=== PATIENT | female | born 1950 | race Caucasian/White ===

== ENCOUNTER 2024-03-04 06:38 | Observation (INO) ==
--- NOTE | 2024-02-06 15:11 | Anesthesiology Consultation ---
Date of Service February 06, 2024 Assessment & Plan (1) Encounter for pre-operative examination: Chart Review Chart Review: Acceptable Risk for Surgery and Patient NOT seen in Pre Admission Testing Infectious Disease screening: Per PAT nursing assessment on 02/06/24, No known infectious disease contacts in past 10 days or current infectious disease symptoms. No recent travel outside the country. History Surgery Operation Date: 03/04/24 11:55 Proposed Procedures p Laparoscopic Multiple Recurrent Ventral Hernia Repair with Mesh - Kulwant Gamez DO Height/Weight Height: 4 ft 11 in Weight: 77.111 kg Allergies Allergy/AdvReac Type Severity Reaction Status Date / Time No Known Allergies Allergy Verified 02/06/24 12:43 Medications Home Medications Medication Instructions Recorded Confirmed Last Taken albuterol sulfate 90 mcg/actuation 2 puff inhalation Q6H PRN 01/14/24 02/06/24 Unknown aerosol inhaler (Ventolin HFA) Shortness Of Breath aspirin 81 mg tablet,delayed 81 mg PO QPM 01/14/24 02/06/24 Unknown release clobetasol 0.05 % topical cream 1 applic topical DAILY PRN Yeast 01/14/24 02/06/24 Unknown Infection dapagliflozin propanediol 10 mg 10 mg PO QAM 01/14/24 02/06/24 Unknown tablet (Farxiga) gabapentin 100 mg capsule 100 mg PO HS 01/14/24 02/06/24 Unknown hydrochlorothiazide 12.5 mg tablet 12.5 mg PO QAM 01/14/24 02/06/24 Unknown insulin glargine 100 unit/mL (3 See Rx Instructions .Route .COMPLEX 01/14/24 02/06/24 Unknown mL) subcutaneous pen (Lantus Solostar U-100 Insulin) meclizine 12.5 mg tablet 12.5 mg PO TID PRN Vertigo 01/14/24 02/06/24 Unknown metformin 1,000 mg tablet 1,000 mg PO QAM 01/14/24 02/06/24 Unknown nystatin 100,000 unit/gram topical 1 applic topical DAILY PRN Yeast 01/14/24 02/06/24 Unknown powder Infection omeprazole 40 mg capsule,delayed 40 mg PO QAM 01/14/24 02/06/24 Unknown release potassium chloride 10 mEq 10 meq PO QAM 01/14/24 02/06/24 Unknown capsule,extended release semaglutide 1 mg/dose (4 mg/3 mL) 1 mg subcut WK 01/14/24 02/06/24 02/02/24 subcutaneous pen injector (Ozempic) simvastatin 20 mg tablet 20 mg PO HS 01/14/24 02/06/24 Unknown vortioxetine 10 mg tablet 10 mg PO QAM 01/14/24 02/06/24 Unknown (Trintellix) furosemide 20 mg tablet 20 mg PO DAILY PRN Fluid Retention 02/06/24 02/06/24 Unknown losartan 50 mg tablet 50 mg PO QAM 02/06/24 02/06/24 Unknown Past Medical History Medical History (Updated 02/06/24 @ 15:10 by Ann Brush PA-C) Anxiety Chronic kidney disease (CKD) Stage II- PCP monitors closely Diabetes mellitus, type II Mukund in place - rotate sites GERD (gastroesophageal reflux disease) GI bleed hx - >30 years ago History of Mohs micrographic surgery for skin cancer Nose HTN (hypertension) Hx of deep venous thrombosis >30 years ago Obesity Osteoarthritis Peripheral neuropathy Skin cancer On nose - 2022 - MOHS Sleep apnea c-pap Past Family History Family History (Updated 01/26/24 @ 11:39 by Aiyana Lyons RN) Brother Cancer Other Diabetes Past Surgical History Surgical History (Updated 02/06/24 @ 13:08 by Mahsa Woodson RN) H/O ankle fusion Left H/O: hysterectomy History of tonsillectomy and adenoidectomy Hx of cataract surgery Bilateral Hx of colonoscopy Hx of hernia repair x3 S/P appendectomy S/P hernia surgery [address] Weaver Dubious Social History Smoking Status: Never smoker Do You Dip or Chew Tobacco: No Hx Alcohol Use: Yes Alcohol type: wine alcohol intake frequency: holidays/special occasions only Hx Substance Use: No substance use type: does not use Lab Results Anesthesia Preop Results Results Anesthesia Widget: WBC 8.69 K/ul (4.8-10.8) 01/26/24 Hgb 12.9 g/dl (12.0-16.0) 01/26/24 Hct 39.2 % (37.0-47.0) 01/26/24 Plt 363 K/uL (130-400) 01/26/24 Na 141 mmol/L (136-145) 01/26/24 K 3.9 mmol/L (3.5-5.1) 01/26/24 Cl 98 mmol/L (98-107) 01/26/24 CO2 32 mmol/L (21-32) 01/26/24 BUN 17 mg/dl (6-23) 01/26/24 Creat 1.17 mg/dl (0.6-1.2) 01/26/24 Glucose Level 121 mg/dl (70-99(Fasting)) H 01/26/24 Testing Electrocardiogram Date: 01/26/24 Findings: + NSR @ (92bpm) LAD
--- NOTE | 2024-03-04 06:58 | History & Physical Report ---
Date of Service March 04, 2024 Assessment & Plan (1) Recurrent ventral hernia: Plan: We have discussed her options as well as risks. We have discussed bleeding, infection, injury to another organ such as bowel, DVT, PE, AK, CVA etc. Following our discussion I answered all of her questions. She agrees with the plan and we will proceed today with laparoscopic repair of a recurrent ventral hernia with mesh. (2) Chronic kidney disease: (3) Hypertension: (4) Diabetes: History of Present Illness Primary Care Provider: Carly Ramos MD Renetta is here for repair of a recurrent ventral hernia. It has been getting larger and more symptomatic. There have been no major health changes since I seen her last in the office. Allergies Allergy/AdvReac Type Severity Reaction Status Date / Time No Known Allergies Allergy Verified 02/24/24 11:09 Home Medications Medication Instructions Recorded Confirmed Type aspirin 81 mg tablet,delayed 81 mg PO QPM 01/14/24 02/24/24 History release clobetasol 0.05 % topical cream 1 applic topical DAILY PRN Yeast 01/14/24 02/24/24 History Infection dapagliflozin propanediol 10 mg 10 mg PO QAM 01/14/24 02/24/24 History tablet (Farxiga) gabapentin 100 mg capsule 100 mg PO HS 01/14/24 02/24/24 History hydrochlorothiazide 12.5 mg tablet 12.5 mg PO QAM 01/14/24 02/24/24 History insulin glargine 100 unit/mL (3 See Rx Instructions .Route .COMPLEX 01/14/24 02/24/24 History mL) subcutaneous pen (Lantus Solostar U-100 Insulin) meclizine 12.5 mg tablet 12.5 mg PO TID PRN Vertigo 01/14/24 02/24/24 History metformin 1,000 mg tablet 1,000 mg PO QAM 01/14/24 02/24/24 History nystatin 100,000 unit/gram topical 1 applic topical DAILY PRN Yeast 01/14/24 02/24/24 History powder Infection omeprazole 40 mg capsule,delayed 40 mg PO QAM 01/14/24 02/24/24 History release potassium chloride 10 mEq 10 meq PO QAM 01/14/24 02/24/24 History capsule,extended release simvastatin 20 mg tablet 20 mg PO HS 01/14/24 02/24/24 History vortioxetine 10 mg tablet 10 mg PO QAM 01/14/24 02/24/24 History (Trintellix) furosemide 20 mg tablet 20 mg PO DAILY PRN Fluid Retention 02/06/24 02/24/24 History losartan 50 mg tablet 50 mg PO QAM 02/06/24 02/24/24 History semaglutide 2 mg/dose (8 mg/3 mL) 2 mg (0.75 mL) subcut WK #3 mL 02/24/24 02/24/24 Rx subcutaneous pen injector (Ozempic) blood-glucose meter,continuous #1 ea 02/27/24 Rx (Dexcom G7 Crm Specialist) blood-glucose sensor (Dexcom G7 #9 ea 03/03/24 Rx Sensor device) Past Med/Surg History Problem List (Updated 02/24/24 @ 12:10 by Carly Ramos MD) Healthcare maintenance Encounter for pre-operative examination Recurrent ventral hernia Sleep apnea Chronic kidney disease Intertrigo Peripheral neuropathy Osteoarthritis Anxiety Abdominal pain Hypertension Diabetes Ventral hernia Medical History Obesity GERD (gastroesophageal reflux disease) History of Mohs micrographic surgery for skin cancer Hx of deep venous thrombosis Sleep apnea Peripheral neuropathy Osteoarthritis HTN (hypertension) Diabetes mellitus, type II Chronic kidney disease (CKD) Anxiety Skin cancer GI bleed Surgical History Hx of colonoscopy Hx of hernia repair Hx of cataract surgery H/O ankle fusion History of tonsillectomy and adenoidectomy H/O: hysterectomy S/P appendectomy S/P hernia surgery Family History Brother Cancer Other Diabetes Social History Smoking Status: Never smoker Second Hand Exposure: No; Do You Dip or Chew Tobacco: No; Tobacco Cessation Education Requested by Patient: No Hx Alcohol Use: Yes Alcohol type: wine Hx Substance Use: No Preferred Language: Setswana Communication Ability: Effective Senior Coldfusion Developer Required: No Beliefs That Will Affect Care: None marital status: / Current Living Situation: Alone current occupational status: retired How many Children do You have: 1 Other Information That Helps Us Care for You: No Feels Safe at Home: Yes Safety Concerns: Feels Safe At This Time Diet: diabetic during the past year weight has: decreased > 10 lbs Assistive Devices: Contacts, CPAP, Denture - Upper and Glasses Physical Exam Constitutional: WD/WN, vitals as above no acute distress and not ill appearing Eyes: PERRL, conjunctivae normal, anicteric sclerae EOM intact bilaterally ENMT: external ear and nose normal, oropharynx normal Ears: no hearing impairment Neck: trachea midline, no thyromegaly Respiratory: normal respiratory effort; no respiratory distress and does not use accessory muscles Cardiovascular: Rate/Rhythm: regular rate and regular rhythm Gastrointestinal (Abdomen): Soft nontender. Recurrent midline ventral hernia. Exam unchanged from prior Skin: no rashes, warm and dry Psychiatric: Orientation: alert, oriented x 3 and cooperative
[2024-03-04] MEDS: LR 15ML/HR IV SCH (07:30)
[2024-03-04] MEDS ORDERED: diphenhydrAMINE 50 MG/ML VIAL ONE (07:47)
[2024-03-04] MEDS ORDERED: ONDANSETRON INJ 2 MG/ML 2 ML VIAL ONE (07:47)
[2024-03-04] MEDS ORDERED: LIDOCAINE 2% 2 ML VIAL/AMP(20MG/ML) INFIL ONE (07:47)
[2024-03-04] MEDS ORDERED: SODIUM CHLORIDE 0.9% PF INJ 10 ML VIAL ONE (07:47)
[2024-03-04] MEDS ORDERED: DEXAMETHASONE SOD INJ 4 MG/ML VIAL ONE (07:47)
[2024-03-04] MEDS ORDERED: ROCURONIUM BROMIDE 10 MG/ML 5 ML VIAL IV ONE (07:47)
[2024-03-04] MEDS ORDERED: PROPOFOL IV EMULSION 10 MG/ML 20 ML VIAL IV ONE (07:47)
[2024-03-04] MEDS ORDERED: fentaNYL citrate PF 100 MCG/2 ML VIAL ONE (07:48)
[2024-03-04] MEDS ORDERED: MIDAZOLAM HCL 1 MG/ML 2ML VIAL ONE (07:48)
[2024-03-04] MEDS: ceFAZolin 2000MG 2,000 MG/15 ML SYR IV SCH (08:35)
[2024-03-04] MEDS ORDERED: SUGAMMADEX SODIUM 200 MG/2 ML VIAL IV ONE (08:52)
[2024-03-04] MEDS ORDERED: ePHEDrine sulfate 50 MG/5 ML SYR ONE (09:05)
[2024-03-04] MEDS ORDERED: ONDANSETRON INJ 2 MG/ML 2 ML VIAL IV PRN ×2 (09:13→09:30)
[2024-03-04] MEDS ORDERED: oxyCODONE/ACETAMINOPHEN 5mg/325mg TAB PO PRN (09:13)
[2024-03-04] MEDS ORDERED: ACETAMINOPHEN 1000 MG/100 ML IV IV ONE (09:26)
[2024-03-04] MEDS ORDERED: HYDROmorphone INJ 2 MG/ML SYR/VIAL IV PRN (09:30)
[2024-03-04] MEDS ORDERED: PROMETHAZINE HCL 6.25 MG in SODIUM CHLORIDE 0.9% 50 ML IV PRN (09:30)
[2024-03-04] MEDS ORDERED: ATROPINE SULFATE 0.1 MG/ML 10ML SYR IV PRN (09:30)
[2024-03-04] MEDS ORDERED: ePHEDrine sulfate 50 MG/ML AMP IV PRN (09:30)
[2024-03-04] MEDS: BUPIVACAINE/EPINEPHRINE 0.5% MPF 1:200,000 30 ML VIAL ONE (09:47)
[2024-03-04] MEDS ORDERED: PHARMACY GLYCEMIC MGMT CONSULT PRN (10:01)
[2024-03-04] MEDS ORDERED: GLUCAGON FOR INJ 1 MG VIAL SQ PRN (10:01)
[2024-03-04] MEDS ORDERED: ACETAMINOPHEN 1,000 MG/100 ML VIAL IV PRN (10:01)
[2024-03-04] MEDS ORDERED: DEXTROSE 50% 50 ML SYRINGE IV PRN (10:01)
[2024-03-04] MEDS ORDERED: GLUCOSE 10 TAB/TUBE PO PRN (10:01)
[2024-03-04] MEDS ORDERED: GLUCOSE 40% GEL 15 GM TUBE PO PRN (10:01)
[2024-03-04] MEDS ORDERED: CARBOHYDRATES FOR HYPOGLYCEMIA PO PRN (10:01)
[2024-03-04] MEDS: fentaNYL citrate PF 100 MCG/2 ML VIAL IV PRN (10:10)
--- NOTE | 2024-03-04 10:17 | Operative Report ---
PG Post Operative Report Pre & Post Diagnosis Operation Date: 03/04/24 08:15 Pre-Op Diagnosis: Multiple Recurrent Ventral Hernia Post-Op Diagnosis: Multiple Recurrent Ventral Hernia x 3; adhesions I identified the patient and participated in the time-out.: Yes Procedure Operation Date: 03/04/24 08:15 Actual Procedures p Laparoscopic Multiple Recurrent Ventral Hernia Repair with Mesh x 3(Not Applicable); enterolysis - Kulwant Gamez DO Surgeon Kulwant Gamez DO Clinical Scientist jc Murphy Estimated Blood Loss 10 Findings Consistent with Post-Op Diagnosis Specimens none Description of Procedure After informed consent was obtained the patient was taken to the operating room and placed in supine position. After successful intubation a Campbell catheter was placed sterilely and both arms were tucked. The abdomen was sterilely prepped and draped in usual fashion. A left upper quadrant incision was made with an 11 blade scalpel and carried down through the soft tissue using cautery. The anterior fascia was opened using cautery and two #0 Vicryl stay sutures were placed. Peritoneum was elevated with hemostats and incised under direct vision using a Metzenbaum scissor. Finger sweep was performed to take down any underlying adhesions. A 12 mm Chaudhry trocar was placed and the abdomen was insufflated to 18 mmHg. The laparoscope was inserted. There were adhesions primarily along the midline. These primarily involved colon as well as omentum. I was able to safely place a left lower quadrant 5 mm trocar and a left mid abdominal 5 mm trocar. At least 50% of the procedure was spent taking down adhesions. This was performed using blunt dissection primarily with small amounts of the harmonic scalpel. Once I had the adhesions down we were able to identify 3 separate hernias. There was a small 1 in the right lower quadrant that was probably 1 cm with some fat incarceration. There was an upper midline hernia which was probably 4 cm in greatest dimension and a smaller upper midline incision just to the right of midline just superior to the previous mesh which measured probably 2 cm. There was a general weakness to the central portion of the abdomen although no discrete hernias. We were able to see 2 previously placed pieces of mesh and they both held up nicely with no evidence of recurre nce hernia through the mesh itself. I began by using a 12 cm circular mesh with an antiadhesive barrier. It was rolled up and placed into the abdomen through the camera port site. It was unrolled and placed such that the antiadhesive barrier was facing the bowel. A small incision was made directly over the larger defect and a fascial closure device used to pull the central Prolene stitch. This pulled the mesh up to the undersurface of the hernia defect. A Reliatack tacking device was used to secure the mesh. We did use the absorbable deep tacks. The mesh nicely overlapped the hernia in all directions was tension-free. In similar fashion a 10 cm surgimesh was placed again through the camera port site. It was also unrolled. Again a small incision was made over the central portion of the smaller defect. Fascial closure device was used to pull the central Prolene stitch. Again the mesh came up as an underlay and covered the defect for several centimeters in all directions. The same tacking device was used to secure this mesh again with the deep tacks. The smaller right lower quadrant hernia defect was able to be reduced manually. I felt that the defect would not need mesh because of its size but also its location would make securing it safely very difficult particularly on the inferior and lateral portions. I therefore made a small skin incision directly over it. A fascial closure device was used to pass an 0 Ethibond stitch through the fascia just inferior to the defect as well as superior to the defect and used to pull the tail of the suture back up through. we were then able to primarily close it with a single stitch. A final look around the abdomen showed adequate hemostasis and no other abnormalities. The trocars were all removed and the abdomen desufflated. The 2 central Prolene stitches were also secured. Marcaine with epinephrine was injected around all the incisions. The fascia of the camera port was closed using 0 Vicryl in a [id number] fashion. All the wounds were irrigated and closed using 4-0 Monocryl. Dermabond glue was used as a dressing. The patient had an abdominal binder placed was extubated and transferred to recovery in stable condition. My nurse practitioner was present for the entire case was instrumental in gaining access, assisting with mesh placement, running the camera, wound closure and dressing placement. I attest to the content of the Intraoperative Record and any orders documented therein. Any exceptions are noted below.
[2024-03-04] MEDS: LACTATED RINGER'S 1,000 ML IV SCH (10:45)
[2024-03-04] MEDS: MoRPHine SULFATE 4 MG/ML 1 ML CARP\\VIAL IV PRN (11:04)
[2024-03-04] MEDS: FAMOTIDINE/PF 20 MG/2 ML VIAL IV ONE (11:28)
[2024-03-04] MEDS: SODIUM CHLORIDE 0.9% 1,000 ML IV SCH (11:29)
[2024-03-04] MEDS ORDERED: INSULIN ASPART PER UNIT CHARGE SC SCH (11:30)
--- NOTE | 2024-03-04 11:43 | Anesthesiology Progress Note ---
Date of Service March 04, 2024 Anesthesia Post Procedure Vital Signs Vital Signs: Temp Pulse Pulse Resp BP BP Pulse Ox 03/04/24 11:23 36.5 C 90 16 110/58 L 97 03/04/24 10:45 36.8 C 96 H 16 110/66 95 03/04/24 10:35 36.4 C L 95 H 14 113/47 L 96 03/04/24 10:25 96 H 15 118/52 L 98 03/04/24 10:15 98 H 14 123/54 L 97 03/04/24 10:05 101 H 17 111/62 97 03/04/24 09:59 36.9 C 106 H 18 112/48 L 96 03/04/24 07:03 37.2 C 102 H 20 166/83 H 98 O2 Del Method O2 Flow Rate 03/04/24 11:23 Nasal Cannula 2 03/04/24 10:45 Nasal Cannula 2 03/04/24 10:35 Nasal Cannula 2 03/04/24 10:25 Nasal Cannula 2 03/04/24 10:15 Oxymask 9 03/04/24 10:05 Oxymask 9 03/04/24 09:59 Oxymask 9 03/04/24 07:03 Room Air Pain Intensity Abdomen: Pain Intensity: 3 Transfer of Care Handoff Completed per policy Notes Mental Status: alert / awake / arousable and participated in evaluation Patient Amnestic to Procedure: Yes Nausea / Vomiting: adequately controlled Pain: adequately controlled Airway Patency, RR, SpO2: stable & adequate BP & HR: stable & adequate Hydration State: stable & adequate Anesthetic Complications: no major complications apparent
[2024-03-04] MEDS: LANTUS PER UNIT CHARGE SC ONE (12:27)
[2024-03-04] MEDS: INSULIN ASPART PER UNIT CHARGE SC SCH (12:27)
[2024-03-04] MEDS: oxyCODONE/ACETAMINOPHEN 5mg/325mg TAB PO PRN (12:28)
[2024-03-04] MEDS: MoRPHine SULFATE 2 MG/ML CARP IV PRN (14:06)
--- NOTE | 2024-03-04 14:52 | Pharmacy Report ---
Pharmacy Glycemic Short Note 2 - Date of Service March 04, 2024 - Glycemic Short BSG Results (Last 24 hours): 03/04/24 03/04/24 03/04/24 07:29 10:01 11:26 POC Glucose 167 H 236 H 281 H OUTPATIENT ANTIDIABETIC REGIMEN: * Lantus 35 units Q AM and lantus 30 units q PM * Metformin 1000mg po daily * Farxiga 10mg daily * Ozempic 2mg SC weekly HbA1c: 7.2% on 02/10/24 ASSESSMENT: * Patient is a 71 year old female admitted for a recurrent ventral hernia. Pharmacy has been consulted for glycemic management following hernia repair (POD #0) * Last dose of lantus was 30 units in the evening of 03/03. Patient received 4mg dexamethasone iv x 1 this morning. Postop BSGs were 236 and 281mg/dl so 45 units of lantus were given. No further doses of steroids have been ordered so a basal scale has been ordered for this evening (0-15 units of lantus) * T2DM diet ordered so Novolog was also started with lunch today and added supplemental checks at 0000 and 0400 for tonight only. PLAN FOR INPATIENT GLYCEMIC CONTROL: * Hold outpatient diabetes medications * Basal insulin * Lantus 45 units SQ x 1 then scale for this PM (0 units for BSG < 120, 10 units for BSG 120-180 units, 15 units for BSG > 180) * Bolus insulin * NovoLog per scale ACHS or Q6hrs while NPO * Goal Range: Low 110 mg/dL - High 140 mg/dL * Correction Factor: 20 mg/dL/unit * Nutritional / Prandial insulin per carb ratio of 1 unit per 6 grams CHO consumed
[2024-03-04] MEDS: GABAPENTIN 100 MG CAP PO SCH (21:36)
[2024-03-04] MEDS: SIMVASTATIN 20 MG TAB PO SCH (21:51)
[2024-03-04] MEDS: LANTUS PER UNIT CHARGE SC SCH (21:52)
[2024-03-05] MEDS: INSULIN ASPART PER UNIT CHARGE SC SCH (01:08)
[2024-03-05 06:23] LABS: Basophils # (auto) 0.02 K/uL (0.00-0.20); Basophils % (auto) 0.2 %; Eosinophils # (auto) 0.01 K/uL (0.00-0.50); Eosinophils % (auto) 0.1 %; Hematocrit (blood only) 30.9 % (37.0-47.0); Hemoglobin 9.8 g/dl (12.0-16.0); Immature Granulocytes # (auto) 0.07 K/uL (0.01-0.20); Immature Granulocytes % (auto) 0.8 %; Lymphocytes # (auto) 0.94 K/uL (1.20-3.40); Lymphocytes % (auto) 10.9 %; Mean Corpuscular Hemoglobin 28.6 pg (25.0-34.0); Mean Corpuscular Hgb Conc 31.7 g/dL (32.0-36.0); Mean Corpuscular Volume 90.1 fL (80.0-100.0); Mean Platelet Volume 9.4 fL (9.4-12.4); Monocytes # (auto) 0.82 K/uL (0.11-0.59); Monocytes % (auto) 9.5 %; Neutrophils # (auto) 6.74 K/uL (1.40-6.50); Neutrophils % (auto) 78.5 %; Platelet Count 265 K/uL (130-400); RDW Coefficient of Variation 13.7 % (11.5-14.5); RDW Standard Deviation 45.4 fL (36.4-46.3); Red Blood Count 3.43 M/uL (4.20-5.40)
[2024-03-05 07:01] VITALS: BP 118/71; PULSE 83; RESP 16; TEMP 98.4; O2SAT 92
[2024-03-05] MEDS: hydroCHLOROthiazide 25 MG TAB PO SCH (08:15)
[2024-03-05] MEDS: PANTOprazole 40 MG TAB PO SCH (08:15)
[2024-03-05] MEDS: LOSARTAN POTASSIUM 50 MG TAB PO SCH (08:15)
[2024-03-05] MEDS: POTASSIUM CHLORIDE 10 MEQ TABCR PO SCH (08:20)
--- NOTE | 2024-03-05 08:20 | Surgery Progress Note ---
Date of Service March 05, 2024 Assessment & Plan (1) S/P repair of ventral hernia: Plan: POD 1 doing well ok for d/c. instructions given Admission and Anticipated Discharge Date Admission Date: March 04, 2024 Subjective pt seen. doing well. OOB eating breakfast Physical Exam Physical Exam: alert. nad abd: soft. expected tenderness Results & Data Vital Signs (Past 12 Hours) Vital Signs Temp Pulse Pulse Resp BP Pulse Ox O2 Del Method 03/05/24 07:01 36.9 C 83 16 118/71 92 Room Air 03/05/24 03:57 36.6 C 84 18 122/77 96 Room Air 03/04/24 22:39 36.9 C 89 17 104/66 96 Room Air PG Care Time/CCT Total # of Minutes Spent Total Time Spent with Patient: Total time spent is greater than 50% in coordination of care (as documented) at patient's floor/unit and/or counseling patient: Coding Level of Care Code 05929 Post Operative Follow-Up Diagnoses S/P repair of ventral hernia Z98.890; Z87.19
[2024-03-05] MEDS: LANTUS PER UNIT CHARGE SC SCH (09:03)
--- NOTE | 2024-03-10 08:30 | Discharge Summary ---
Date of Service March 05, 2024 Admission HPI Per Admitting Provider Renetta is here for repair of a recurrent ventral hernia. It has been getting larger and more symptomatic. There have been no major health changes since I seen her last in the office. Principal Diagnosis s/p repair of ventral hernia Discharge Exam awake/alert, no distress Gastrointestinal (Abdomen) Inspection/Auscultation: + abdominal surgical incision (c/d/i with dermabond) Percussion/Palpation: + abdomen tender (expected post op discomfort to palpation) and abdomen soft Discharge Data Allergies Allergy/AdvReac Type Severity Reaction Status Date / Time No Known Allergies Allergy Verified 03/04/24 07:08 Procedures Performed Operation Date: 03/04/24 08:15 Actual Procedures p Laparoscopic Multiple Recurrent Ventral Hernia Repair with Mesh(Not Applicable) - Kulwant Gamez, Hospital Course (1) S/P repair of ventral hernia: This is a 73yF who presented to the [facility] on 03/04/24 for elective repair of multiple ventral hernia's with mesh performed laparoscopically with dr. gamez. The patient tolerated the procedure well, see op note for full details. The patient recovered in the PACU and was transferred to the med/surg floor in stable condition. Post operatively diet was advanced as tolerated and pain controlled with prn pain medications. On POD#1 the patient was tolerating a regular diet, pain manageable, and incisions c/d/i. She was deemed stable for discharge to home with instructions to follow up in clinic within 2 weeks time for a post op check. Total Time Total Time Spent Total Time Spent (In Minutes): 10 Discharge Plan Discharge Items Patient Disposition: Home - Self-Care Reason For Visit: S/P VENTRAL HERNIA REPAIR Discharge Diagnosis: Laparoscopic Multiple Recurrent Ventral Hernia Repair with Mesh Activity: Per Instructions section Lifting: No more than 10 pounds Bathing Comment: you can shower 03/05/24. no soaking in pool/bath for 2 weeks Exercise/Sports: Wait until after follow-up appointment Driving/Machine Use: no driving while taking narcotics for pain, wait until cleared by surgeon Non-emergency contact: Surgeon Call non-emergency contact if: you have any medication questions, your pain is not controlled, you have a fever, your temperature is above 101.5, your wound has increased redness, your wound has increased drainage and your wound pain has increased Follow-up/Referrals: Kulwant Gamez, [Surgeon] - (call office for follow up in 2 weeks ) Caryl Ramos MD [Primary Care Provider] - Diet: Regular Addtl Attending Provider Instructions: You have surgical glue called dermabond on your surgical site incisions. You may shower with this on. This will tend to come off within a couple of weeks. Do not pick at it. continue to wear your abdominal binder, you may remove for showering Pending Studies at Discharge: No Stand-Alone Forms: My [facility] Medications and DC Order Prescriptions: New oxycodone-acetaminophen 5-325 mg tablet 1 - 2 tab PO .[id number] MDD Max 6 tabs per day PRN (Reason: pain) Qty: 20 0RF Continued (DME) Dexcom G7 Gravity Manager Misc See Rx Instructions .Route Qty: 1 0RF Rx Instructions: As directed (DME) Dexcom G7 Sensor Device See Rx Instructions .Route Qty: 9 3RF Rx Instructions: As directed Ozempic 2 mg/dose (8 mg/3 mL) pen injector 2 mg subcut WK Qty: 3 2RF insulin glargine [Lantus Solostar U-100 Insulin] 100 unit/mL (3 mL) insulin pen See Rx Instructions .ROUTE .COMPLEX Rx Instructions: 35 unit subcutaneously QAM 30 unit subcutaneously QPM meclizine 12.5 mg tablet 12.5 mg PO TID PRN (Reason: Vertigo) omeprazole 40 mg capsule,delayed release(DR/EC) 40 mg PO QAM dapagliflozin propanediol [Farxiga] 10 mg tablet 10 mg PO QAM gabapentin 100 mg capsule 100 mg PO HS hydrochlorothiazide 12.5 mg tablet 12.5 mg PO QAM Trintellix 10 mg tablet 10 mg PO QAM metformin 1,000 mg tablet 1,000 mg PO QAM clobetasol 0.05 % cream 1 applic topical DAILY PRN (Reason: Yeast Infection) simvastatin 20 mg tablet 20 mg PO HS nystatin 100,000 unit/gram powder 1 applic topical DAILY PRN (Reason: Yeast Infection) potassium chloride 10 mEq capsule, extended release 10 meq PO QAM aspirin 81 mg tablet,delayed release (DR/EC) 81 mg PO QPM losartan 50 mg tablet 50 mg PO QAM furosemide 20 mg tablet 20 mg PO DAILY PRN (Reason: Fluid Retention) No Action insulin aspart U-100 [Novolog FlexPen U-100 Insulin] 100 unit/mL (3 mL) insulin pen 1 sliding scale dose subcut USEASDIRECTD Qty: 15 2RF cephalexin 500 mg capsule 500 mg PO Q12H Rx Instructions: x 7 days Discharge Orders: Discharge Order (Routine); Ordered 03/05/24 Ordered By: Kulwant Gamez Admission Data Admit Date/Time: 03/04/24 10:01 Attending Provider: Kulwant Gamez Admit Provider: Kulwant Gamez Primary Care Provider: Carly Ramos Other Interventions: Discharge Summary Assessment (RN) Last Done: 03/05/24 10:31 Coding Level of Care Code 88647 IN/OBS DISCH 30 MIN/LESS Diagnoses S/P repair of ventral hernia Z98.890; Z87.19
== END 2024-03-05 11:05 | disposition home or self-care (01) ==
LOC: ASU 06:38 → 3E 06:38
DX: K56.51 Intestinal adhesions [bands], with partial obstruction; N18.9 Chronic kidney disease, unspecified; K43.2 Incisional hernia without obstruction or gangrene; Z79.82 Long term (current) use of aspirin; K21.9 Gastro-esophageal reflux disease without esophagitis; Z79.84 Long term (current) use of oral hypoglycemic drugs; I12.9 Hypertensive chronic kidney disease with stage 1 through stage 4 chronic kidney disease, or unspecified chronic kidney disease; G47.33 Obstructive sleep apnea (adult) (pediatric); Z79.899 Other long term (current) drug therapy; Z86.718 Personal history of other venous thrombosis and embolism; E11.9 Type 2 diabetes mellitus without complications